=== PATIENT | female | born 1990 | race Caucasian/White ===

== ENCOUNTER 2017-02-03 20:51 | Emergency (ER) | payer SELFPAY ==
--- NOTE | 2017-02-03 23:28 | ER Document Report ---
ED Medical Screen (RME) - General Chief Complaint: Fainting Stated Complaint: WEAKNESS Time Seen by Provider: 02/03/17 23:27 Mode of Arrival: Ambulatory Information source: Patient TRAVEL OUTSIDE OF THE [place] IN LAST 30 DAYS: No - HPI Patient complains to provider of: Persistent cough, dizziness, near-syncopal episode - Related Data Allergies/Adverse Reactions: latex [Latex] Allergy (Intermediate, Verified 06/09/12 22:44) rash Past Medical History - Social History Family history: None Renal/ Medical History: Denies: Hx Peritoneal Dialysis - Immunizations Hx Diphtheria, Pertussis, Tetanus Vaccination: No Physical Exam - Vital signs Vitals: Temp Pulse Resp BP Pulse Ox 98.9 F 74 18 119/86 H 97 02/03/17 21:44 02/03/17 21:44 02/03/17 21:44 02/03/17 21:44 02/03/17 21:44 Course - Vital Signs Vital signs: Temp Pulse Resp BP Pulse Ox 98.9 F 74 18 119/86 H 97 02/03/17 21:44 02/03/17 21:44 02/03/17 21:44 02/03/17 21:44 02/03/17 21:44
--- NOTE | 2017-02-04 00:11 | ER Document Report ---
ED General - General Chief Complaint: Fainting Stated Complaint: WEAKNESS Time Seen by Provider: 02/03/17 23:27 Mode of Arrival: Ambulatory Notes: Patient is a pleasant 26-year-old female presents with complaint of dizziness and lightheadedness. She has had a cough and congestion. She said she is in high school she would sometimes have difficulty with almost passing out if she coughs. Over last few days she has had worsening cough and now whenever she coughs she starts feels if she is going to pass out. She is not fully passed out. She denies any fevers. No vomiting. No diarrhea. Other family members have also been sick with coughing and congestion. She denies any bleeding. No chest pain. She has felt slightly short of breath when she is coughing. No leg pain or leg swelling. No history of PE or DVT. No other complaints at this time. TRAVEL OUTSIDE OF THE [place] IN LAST 30 DAYS: No - Related Data Allergies/Adverse Reactions: latex [Latex] Allergy (Intermediate, Verified 06/09/12 22:44) rash Past Medical History - General Information source: Patient - Social History Smoking Status: Current Some Day Smoker Frequency of alcohol use: None Drug Abuse: None Family History: Reviewed & Not Pertinent Patient has suicidal ideation: No Patient has homicidal ideation: No Renal/ Medical History: Denies: Hx Peritoneal Dialysis - Immunizations Hx Diphtheria, Pertussis, Tetanus Vaccination: No Review of Systems - Review of Systems Notes: My Normal Review Basic REVIEW OF SYSTEMS: CONSTITUTIONAL : Denies fever, chills, or sweats. Denies recent illness. EENT: Nasal Congestion CARDIOVASCULAR: Denies chest pain. RESPIRATORY: recurrent coughing. GASTROINTESTINAL: Denies abdominal pain. Denies nausea, vomiting, or diarrhea. MUSCULOSKELETAL: Denies neck or back pain or joint pain or swelling. SKIN: Denies rash or skin lesions. NEUROLOGICAL: Denies altered mental status or loss of consciousness. Some dizziness and near syncope with coughing. Denies headache. Denies weakness or paralysis or loss of use of either side. Denies problems with gait or speech. Denies sensory or motor loss. ALL OTHER SYSTEMS REVIEWED AND NEGATIVE. Physical Exam - Vital signs Vitals: Temp Pulse Resp BP Pulse Ox 98.9 F 74 18 119/86 H 97 02/03/17 21:44 02/03/17 21:44 02/03/17 21:44 02/03/17 21:44 02/03/17 21:44 - Notes Notes: General Appearance: Well nourished, alert, cooperative, no acute distress, no obvious discomfort. Well-appearing. Vitals: reviewed, See vital signs table. Head: no swelling or tenderness to the head Eyes: PERRL, EOMI, Conjuctiva clear Mouth: No decreasd moisture Throat: No tonsillar inflammation, No airway obstruction, No lymphadenopathy Neck: Supple, no neck tenderness, No thyromegaly Lungs: No wheezing, No rales, No rhonci, No accessory muscle use, good air exchange bilaterally. Heart: Normal rate, Regular rythm, No murmur, no rub Abdomen: Normal BS, soft, No rigidity, No abdominal tenderness, No guarding, no rebound, no abdominal masses, no organomegaly Extremities: strength 5/5 in all extremities, good pulses in all extremities, no swelling or tenderness in the extremities, no edema. Skin: warm, dry, appropriate color, no rash Neuro: speech clear, oriented x 3, normal affect, responds appropriately to questions. Renal nerves II through XII are intact. Distal sensation intact. Patient moves all extremities without difficulty. Course - Re-evaluation Re-evalutation: 02/04/17 06:48 It appears the patient has near syncopal episodes with her coughing. I do not suspect PE because the patient has what appears to be more of a viral respiratory illness and also her family members have the same symptoms. Also she is PERC rule negative. I will give her a few days off work. I will give some medicine to help control the cough. I encouraged her return to ER immediately if she has difficulty breathing, syncope, chest pain, fevers, or she feels that she is worsening. Patient agrees with plan and will be discharged home. Dictation of this chart was performed using voice recognition software; therefore, there may be some unintended grammatical errors. - Vital Signs Vital signs: Temp Pulse Resp BP Pulse Ox 98.9 F 67 18 116/69 99 02/03/17 21:44 02/04/17 02:11 02/04/17 02:11 02/04/17 02:11 02/04/17 02:11 - Laboratory Result Diagrams: 02/03/17 23:45 02/03/17 23:45 Laboratory results interpreted by me: 02/03/17 23:45 Sodium 146.3 H Glucose 113 H Total Bilirubin 1.4 H Albumin 5.1 H - EKG Interpretation by Me Additional EKG results interpreted by me: 02/04/17 00:10 EKG is reviewed and interpreted by me. EKG shows normal sinus rhythm with rate of [address] segment elevation or depression. No ischemic T-wave inversions. [place] interval, QRS duration, QTc intervals are within normal range. No old EKG available for comparison. Discharge - Discharge Clinical Impression: Near syncope, Cough Condition: Good Disposition: HOME, SELF-CARE Additional Instructions: Please rest over the next 2 days and drink noncaffeinated liquids. Please take the prescribed medication for cough control. Please return tot eh ER if you have difficulty breathing, recurrent passing out, or feel unwell. Prescriptions: Benzonatate [Tessalon Perle 100 mg Capsule] 100 mg PO ASDIR PRN #30 cap PRN Reason: Cough Forms: Return to Work
[2017-02-04 00:21] LABS: ABSOLUTE BASOPHILS # (AUTO) 0.1 10^3/uL (0.0-0.2); ABSOLUTE EOSINOPHILS # (AUTO) 0.2 10^3/uL (0.0-0.6); ABSOLUTE MONOCYTES (AUTO) 0.9 10^3/uL (0.1-1.4); ABSOLUTE NEUT (AUTO) 4.9 10^3/uL (1.7-8.2); BASOPHILS % (AUTO) 0.6 % (0-2); EOSINOPHILS % (AUTO) 1.9 % (0-6); HEMATOCRIT 37.2 % (36.0-47.0); HEMOGLOBIN 12.9 g/dL (12.0-15.5); HGB HCT DIFFERENCE 1.5; LYMPHOCYTES % (AUTO) 33.3 % (13-45); MEAN CORPUSCULAR HEMOGLOBIN 29.9 pg (27.0-33.4); MEAN CORPUSCULAR HGB CONC 34.7 g/dL (32.0-36.0); MEAN CORPUSCULAR VOLUME 86 fl (80-97); MONOCYTES % (AUTO) 9.6 % (3-13); RED BLOOD COUNT 4.32 10^6/uL (3.72-5.28); RED CELL DISTRIBUTION WIDTH 13.2 % (11.5-14.0); SEGMENTED NEUTROPHILS % (AUTO) 54.6 % (42-78)
--- NOTE | 2017-02-04 00:23 | RADIOLOGY REPORT (SQ) ---
EXAM DESCRIPTION: CHEST PA/LAT CLINICAL HISTORY: cough COMPARISON: None. FINDINGS: Frontal and lateral views of the chest. The cardiomediastinal silhouette has normal size and contour. No consolidation, pneumothorax, or pleural effusion. No displaced rib fractures identified. Upper abdominal soft tissues are unremarkable. IMPRESSION: 1. No acute pulmonary process identified.
[2017-02-04 00:36] LABS: APPEARANCE,URINE CLEAR; BILIRUBIN,URINE NEGATIVE (NEGATIVE); GLUCOSE, URINE NEGATIVE (NEGATIVE); KETONES,URINE NEGATIVE (NEGATIVE); LEUKOCYTE ESTERASE,URINE NEGATIVE (NEGATIVE); NITRITE,URINE NEGATIVE (NEGATIVE); PROTEIN,URINE NEGATIVE (NEGATIVE); URINE SPECIFIC GRAVITY 1.017; UROBILINOGEN,URINE NEGATIVE mg/dL (<2.0)
[2017-02-04 00:41] LABS: ALANINE AMINOTRANSFERASE 28 U/L (9-52); ALBUMIN 5.1 g/dL (3.5-5.0); ALKALINE PHOSPHATASE 50 U/L (38-126); ANION GAP 17 (5-19); ASPARTATE AMINO TRANSFERASE 18 U/L (14-36); BILIRUBIN,DIRECT 0.4 mg/dL (0.0-0.4); BILIRUBIN,TOTAL 1.4 mg/dL (0.2-1.3); BLOOD UREA NITROGEN 14 mg/dL (7-20); CALCIUM 10.2 mg/dL (8.4-10.2); CARBON DIOXIDE 25 mmol/L (22-30); CHLORIDE 104 mmol/L (98-107); CREATINE KINASE 80 U/L (30-135); CREATININE RESULT 0.59 mg/dL (0.52-1.25); GLUCOSE 113 mg/dL (75-110); SODIUM 146.3 mmol/L (137-145); TOTAL PROTEIN 8.1 g/dL (6.3-8.2)
[2017-02-04 00:53] LABS: CREATINE KINASE MB 0.53 ng/mL (<4.55)
[2017-02-04 00:54] LABS: TROPONIN I < 0.012 ng/mL
[2017-02-04 02:12] VITALS: BP 116/69
--- NOTE | 2017-02-04 09:17 | EKG REPORT ---
SEVERITY:- BORDERLINE ECG - SINUS RHYTHM PROBABLE LEFT ATRIAL ABNORMALITY : Confirmed by: Bahman Nuñez 04-Feb-2017 09:16:15
== END 2017-02-04 02:11 | disposition home or self-care (01) ==
LOC: ER 20:51
DX: R55 Syncope and collapse (principal); R05 Cough; R53.1 Weakness; F17.200 Nicotine dependence, unspecified, uncomplicated; Z91.040 Latex allergy status
CPT/HCPCS: 36415; 71020; 80053; 81001; 81025; 82550; 82553; 84484; 85025; 93005; 93010; 99284